=== PATIENT | male | born 1940 | race Caucasian/White ===

== ENCOUNTER 2016-11-08 17:12 | Emergency (ER) | payer MEDICARE, BC ==
[2016-11-08 20:24] VITALS: BP 134/61
--- NOTE | 2016-11-12 15:05 | ER ---
DATE SEEN: 11/08/2016 TIME SEEN: The patient was seen at 1710 hours. HISTORY OF PRESENT ILLNESS: This 89-pound man who is previously known to have gout, hypertension, extensive cellulitis of legs, and dehydration, presents with the onset of dizziness today. He did not fall. No chest pain or irregular heartbeat or diaphoresis or headache or paresis or weakness or numbness. He has had increasing swelling in his ankles more recently. He denies shortness of breath or cough or dyspnea or orthopnea. PAST MEDICAL HISTORY: Significant for dyslipidemia; obesity; gout; and at one time in 2014 had methicillin-resistance Staph aureus in a postoperative wound on the left lower leg. He has had chronic right knee bursitis. He has had polypectomy, cataract surgery, and colonoscopy in 2011. The patient is accompanied by his . ALLERGIES: No known allergies. MEDICATIONS: He takes, 1. Aspirin daily. 2. Losartan/hydrochlorothiazide 100/12.5. 3. Rosuvastatin. 4. Crestor. 5. Gemfibrozil. REVIEW OF SYSTEMS: Negative except as noted above. PHYSICAL EXAMINATION: VITAL SIGNS: Blood pressure 132/69, temperature is 36.6 degrees centigrade, respiratory rate is 18, oxygen saturation 98%, and underlying heart rate 40. CONSTITUTIONAL: The patient is alert, markedly obese with an increased abdominal girth. 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 HEENT: PERRLA intact. Pharynx without abnormality. Skin is dry. No cervical adenopathy. No thyromegaly. LUNGS: Clear to auscultation without rales, rhonchi, or wheezes. HEART: S1, S2. No murmur. No irregular rate and rhythm. His heart is difficult to hear because of extensive obesity. Heart rate is 42 to 47; when he sits up, it goes up to 60. BACK: No spinous process tenderness. No cervical spine discomfort or paraspinal muscle discomfort of cervical, thoracic, or lumbar spine. ABDOMEN: Soft. No guarding, no abdominal discomfort. HEART: S1, S2. There is no murmur. EXTREMITIES: 1+ pedal edema. No dysesthesia. Dorsalis pedis decreased, lower extremities and radial pulse decreased, upper extremities. DIAGNOSTIC DATA: EKG demonstrates sinus bradycardia with a right bundle branch block. LABORATORY: Troponin is normal, less than 0.01. BNP is slightly elevated at 428. C-reactive protein is slightly elevated at 1.3, and the remainder of automated chemistry is negative except for a creatinine of 1.4 and a BUN of 21 with BUN to creatinine ratio of 15, glucose 143. Lactic acid is slightly elevated at 2.3. Urinalysis is normal. Chest x-ray shows mild cardiomegaly. The current cardiothoracic ratio is slightly decreased, this was standing and it was not in supine and he was not sitting when his chest x-ray was taken. ASSESSMENT: The patient is on bisoprolol, this is slowing his heart rate. This is probably the reason why he has bradycardia. However, usually bisoprolol is an JANNY agent, intrinsic sympathomimetic beta tameka was supposed to slightly increase the heart rate. The patient is to discontinue bisoprolol and to follow up with doctor in 5 days, earlier if worse. It is interesting the nurse did not reconcile the bisoprolol on the medications list. LABORATORY DATA: Normal white count 8200, PMNs 63, lymphocytes 23, monos 14, hemoglobin 14.5. OTHER PROBLEMS: 1. Marked obesity. 2. The patient later in the examination was noted to have a flushed face. Because of this, I raised a question if he has a new or recurrent cellulitis or new osteomyelitis, or ongoing mild infection. Chest x-ray did not show this nor did we see any abnormality in urine. Blood cultures x2 were taken. His lactic acid was elevated. So, he may have another source of infection that is not evident on the clinical exam. 3. Massive obesity-premorbid obesity. 4. Hypertension, treated. 5. Gout, treated, stable. His uric acid is 5.37. 6. Status post old cellulitis, left lower extremity. I had to raise the question if he has recurrence of cellulitis causing lower pressure and/or flushing in his face and elevated lactic acid. CRP does not suggest that, as this is 1.3, which is mildly elevated. There is no suggestion of congestive heart failure. He has extensive edema of the lower extremities, probably secondary to the effect of beta-tameka. PLAN: Follow up with doctor in 3 to 5 days. I did not start him on antibiotics. If he is markedly worse, he is to return to the ER. On 11/08/2016 two blood cultures and urine culture were negative. /[id number] SARWAT/GUSTABO MEJÍA
--- NOTE | 2016-11-15 14:07 | CR ---
INDICATION: Bradycardia, edema, leg weakness, and dizziness. COMPARISON: Portable chest 21 December 2014. PA AND LATERAL CHEST: Moderate perihilar, bibasilar segmental atelectasis, and/ or parenchymal scarring change with volume loss, stable right, mildly improved left. No cardiomegaly, large pleural effusion, interstitial edema, or pneumothorax otherwise. Moderate mid kyphotic deformity. Moderate vertebral endpoint irregularity, intervertebral disk space narrowing, with mild wedge-shaped deformity vertebral bodies mid thoracic spine. No osseous destructive change otherwise. IMPRESSION: 1. Moderate perihilar, bibasilar segmental atelectasis, and/or parenchymal scarring change, mildly improved left, stable right. No other evidence of acute cardiopulmonary disease. 2. Findings more likely representing moderate Scheuermanns disease, (benign osteochondrosis) mid thoracic spine and mild compression fractures at this location from nonspecific etiology, however, more likely insufficiency from osteoporosis, less likely. MTDD
== END 2016-11-08 20:05 | disposition home or self-care (01) ==
LOC: FB.ED 17:12
DX: R42 Dizziness and giddiness (principal); M25.473 Effusion, unspecified ankle; E66.9 Obesity, unspecified; I10 Essential (primary) hypertension; M10.9 Gout, unspecified; Z79.82 Long term (current) use of aspirin; Z79.899 Other long term (current) drug therapy
CPT/HCPCS: 36415; 71020; 80053; 81001; 83605; 83880; 84484; 84550; 85025; 86140; 87040; 87086; 93000; 99214; 99283